=== PATIENT | male | born 1985 | race African-American/Black ===

== ENCOUNTER 2020-06-11 18:02 | Inpatient (IN) | payer OTHER ==
[~2020-06-11] VITALS: Ht 182.9 cm; Wt 109.4 kg
[2020-06-11] MEDS ORDERED: DiphenhydrAMINE HCL 50 MG/ML VIAL IM ONE (19:00)
[2020-06-11] MEDS ORDERED: LORazepam 2 MG/ML VIAL IM ONE (19:00)
[2020-06-11 19:44] LABS: BASOPHILS % (AUTO) 0.3 % (0.0-2.0); EOSINOPHILS % (AUTO) 1.3 % (1.0-6.0); HEMATOCRIT 46.5 % (41-53); HEMOGLOBIN 15.1 g/dL (13.5-17.5); LYMPHOCYTES # (AUTO) 1.8 K/uL (1.0-4.8); LYMPHOCYTES % (AUTO) 26.7 % (22.0-44.0); MEAN CORPUSCULAR HEMOGLOBIN 28.5 pg (26.0-34.0); MEAN CORPUSCULAR HGB CONC 32.5 G/dL (31.0-37.0); MEAN CORPUSCULAR VOLUME 88 fL (80-100); MONOCYTES # (AUTO) 0.5 K/uL (0.1-1.0); MONOCYTES % (AUTO) 7.2 % (2.0-9.0); NEUTROPHILS # (AUTO) 4.3 K/uL (1.8-7.7); NEUTROPHILS % (AUTO) 64.5 % (40.0-70.0); PLATELET COUNT (AUTO) 207 K/uL (150-450); RED CELL DISTRIBUTION WIDTH 15.1 % (11.5-14.5)
[2020-06-11 19:55] LABS: ANION GAP 8 mmol/L (8-16); CALCIUM, TOTAL 9.1 mg/dL (8.8-10.5); CARBON DIOXIDE 28 mmol/L (22-29); CHLORIDE 107 mmol/L (98-107); GLOMERULAR FILTR. RATE CALC > 60 mL/min (>60); GLUCOSE,RANDOM 107 mg/dL (70-110); POTASSIUM 4.3 mmol/L (3.5-5.1); SODIUM SERUM 143 mmol/L (136-145); UREA NITROGEN, BLOOD 12 mg/dL (7-18)
[2020-06-11 20:00] LABS: ALANINE AMINOTRANSFERASE 30 U/L (12-78); ALBUMIN 4.4 g/dL (3.4-5.0); ALKALINE PHOSPHATASE 73 U/L (46-116); ASPARTATE AMINOTRANSFERASE 21 U/L (15-37); BILIRUBIN,TOTAL 0.4 mg/dL (0.1-1.0); TOTAL PROTEIN, SERUM 8.6 g/dL (6.4-8.2)
[2020-06-11 21:25] VITALS: BP 126/86
[2020-06-11] MEDS ORDERED: CloNIDine HCL 0.1 MG TABLET PO PRN (23:00)
[2020-06-11] MEDS ORDERED: DOCUSATE SODIUM 100 MG CAPSULE PO PRN (23:00)
[2020-06-11] MEDS ORDERED: PETROLATUM,WHITE 28 GM JELLY TP PRN (23:00)
[2020-06-11] MEDS ORDERED: MAGNESIUM HYDROXIDE SUSPENSION 30 ML UDCUP PO PRN (23:00)
[2020-06-11] MEDS ORDERED: LOPERAMIDE HCL 2 MG CAPSULE PO PRN (23:00)
[2020-06-11] MEDS ORDERED: ACETAMINOPHEN 325 MG TABLET PO PRN (23:00)
[2020-06-11] MEDS ORDERED: GuaiFENesin/D-METHORPHAN [SUGAR-FREE] 200-20MG/10 ML SYRUP UDCUP PO PRN (23:00)
[2020-06-11] MEDS ORDERED: ONDANSETRON HCL 4 MG TABLET PO PRN (23:00)
[2020-06-11] MEDS ORDERED: NICOTINE 14 MG/24 HOUR PATCH TD PRN (23:00)
[2020-06-11] MEDS ORDERED: ALBUTEROL SULFATE HFA 90 MCG/PUFF 8 GM INHALER IH PRN (23:00)
[2020-06-12] VITALS (11 sets, daily range): BP systolic 117–150; BP diastolic 74–112
[2020-06-12 05:51] LABS: AMPHET/METH SCREEN,URINE NEGATIVE (NEGATIVE); BARBITURATE SCREEN, URINE NEGATIVE (NEGATIVE); BENZODIAZEPINES SCREEN,URINE NEGATIVE (NEGATIVE); CANNABINOID SCREEN,URINE NEGATIVE (NEGATIVE); COCAINE SCREEN,URINE NEGATIVE (NEGATIVE); METHADONE SCREEN, URINE NEGATIVE (NEGATIVE); OPIATE SCREEN,URINE NEGATIVE (NEGATIVE)
[2020-06-12 06:00] LABS: PHENCYCLIDINE SCREEN,URINE NEGATIVE (NEGATIVE)
[2020-06-12 15:56] LABS: SALICYLATE 1.1 mg/dL (2.8-20.0)
[2020-06-12 16:00] LABS: BILIRUBIN,DIRECT 0.1 mg/dL (0.00-0.20); BILIRUBIN,TOTAL 0.4 mg/dL (0.1-1.0); TOTAL PROTEIN, SERUM 8.1 g/dL (6.4-8.2)
[2020-06-12] MEDS: MAG HYDROX/AL HYDROX/SIMETH ES 30 ML SUSPENSION UDCUP PO PRN (23:43)
[2020-06-13] MEDS: ZOLPIDEM TARTRATE 5 MG TABLET PO PRN (01:00)
[2020-06-13 04:46] VITALS: BP 118/76
[2020-06-13 07:37] LABS: ALBUMIN 3.5 g/dL (3.4-5.0); BILIRUBIN,DIRECT 0.1 mg/dL (0.00-0.20); BILIRUBIN,TOTAL 0.3 mg/dL (0.1-1.0); TOTAL PROTEIN, SERUM 7.3 g/dL (6.4-8.2)
[2020-06-13 08:13] VITALS: BP 118/77
[2020-06-13] MEDS: MAG HYDROX/AL HYDROX/SIMETH ES 30 ML SUSPENSION UDCUP PO PRN ×2 (08:51→21:26)
[2020-06-13 11:53] VITALS: BP 148/93
[2020-06-13] MEDS ORDERED: HALOPERIDOL LACTATE 5 MG/ML VIAL IM PRN (13:45)
[2020-06-13] MEDS: RisperiDONE 3 MG TABLET PO SCH ×2 (14:24→21:00)
[2020-06-13] MEDS: LITHIUM CARBONATE 300 MG CAPSULE PO SCH ×2 (14:24→21:00)
[2020-06-13 17:07] VITALS: BP 126/87
[2020-06-13] MEDS: DiphenhydrAMINE HCL 25 MG CAPSULE PO PRN (17:38)
[2020-06-13] MEDS: TraMADol HCL 50 MG TABLET PO PRN (17:38)
[2020-06-13 20:04] VITALS: BP 110/70
[2020-06-14 00:06] VITALS: BP 132/73
[2020-06-14 05:55] VITALS: BP 110/69
[2020-06-14 07:06] VITALS: BP 125/74
[2020-06-14] MEDS: TraMADol HCL 50 MG TABLET PO PRN ×2 (08:20→18:14)
[2020-06-14] MEDS: DiphenhydrAMINE HCL 25 MG CAPSULE PO PRN ×2 (08:20→18:14)
[2020-06-14] MEDS: RisperiDONE 3 MG TABLET PO SCH ×2 (08:22→20:30)
[2020-06-14] MEDS: LITHIUM CARBONATE 300 MG CAPSULE PO SCH ×2 (08:22→20:30)
[2020-06-14 11:11] VITALS: BP 108/67
[2020-06-14 15:15] VITALS: BP 139/115
[2020-06-14] MEDS: PHENYLEPHRINE/SHK LV/MIN OIL/PET 57 GM OINTMENT TP PRN (18:15)
[2020-06-14 20:08] VITALS: BP 102/55
[2020-06-14] MEDS: MAG HYDROX/AL HYDROX/SIMETH ES 30 ML SUSPENSION UDCUP PO PRN (20:29)
[2020-06-15 00:08] VITALS: BP 110/62
[2020-06-15] MEDS: ZOLPIDEM TARTRATE 5 MG TABLET PO PRN ×2 (00:23→22:14)
[2020-06-15 04:28] VITALS: BP 118/81
[2020-06-15 07:33] VITALS: BP 119/80
[2020-06-15] MEDS: MAG HYDROX/AL HYDROX/SIMETH ES 30 ML SUSPENSION UDCUP PO PRN ×2 (07:59→20:14)
[2020-06-15] MEDS: DiphenhydrAMINE HCL 25 MG CAPSULE PO PRN ×2 (07:59→18:06)
[2020-06-15] MEDS: TraMADol HCL 50 MG TABLET PO PRN ×2 (07:59→18:07)
[2020-06-15] MEDS: RisperiDONE 3 MG TABLET PO SCH (08:00)
[2020-06-15] MEDS: LITHIUM CARBONATE 300 MG CAPSULE PO SCH (08:00)
[2020-06-15 10:50] VITALS: BP 137/72
[2020-06-15] MEDS: DIVALPROEX SODIUM 500 MG DR TABLET PO SCH ×2 (12:02→20:14)
[2020-06-15 15:22] VITALS: BP 127/54
[2020-06-16] MEDS: LORazepam 2 MG/ML VIAL IM PRN ×3 (01:15→19:57)
[2020-06-16 08:00] VITALS: BP 128/64
[2020-06-16] MEDS: DIVALPROEX SODIUM 500 MG DR TABLET PO SCH ×2 (08:33→19:56)
[2020-06-16] MEDS: TraMADol HCL 50 MG TABLET PO PRN ×2 (08:34→17:48)
[2020-06-16] MEDS: DiphenhydrAMINE HCL 25 MG CAPSULE PO PRN ×2 (08:34→17:48)
[2020-06-16] MEDS: MAG HYDROX/AL HYDROX/SIMETH ES 30 ML SUSPENSION UDCUP PO PRN ×2 (08:38→20:22)
[2020-06-16 15:08] VITALS: BP 135/84
[2020-06-16] MEDS: LURASIDONE HCL 80 MG TABLET PO SCH (19:56)
[2020-06-16 20:03] VITALS: BP 130/75
[2020-06-16] MEDS: ZOLPIDEM TARTRATE 5 MG TABLET PO PRN (20:53)
[2020-06-17 04:04] VITALS: BP 132/73
[2020-06-17 08:22] VITALS: BP 124/75
[2020-06-17] MEDS: DIVALPROEX SODIUM 500 MG DR TABLET PO SCH ×2 (09:34→20:06)
[2020-06-17] MEDS: TraMADol HCL 50 MG TABLET PO PRN (09:40)
[2020-06-17] MEDS: MAG HYDROX/AL HYDROX/SIMETH ES 30 ML SUSPENSION UDCUP PO PRN ×2 (09:41→20:07)
[2020-06-17] MEDS: DiphenhydrAMINE HCL 25 MG CAPSULE PO PRN ×2 (09:45→21:00)
[2020-06-17] MEDS: PHENYLEPHRINE/SHK LV/MIN OIL/PET 57 GM OINTMENT TP PRN (12:39)
[2020-06-17 15:03] VITALS: BP 120/77
[2020-06-17 19:19] VITALS: BP 119/76
[2020-06-17] MEDS: LURASIDONE HCL 80 MG TABLET PO SCH (20:06)
[2020-06-17] MEDS: ZOLPIDEM TARTRATE 5 MG TABLET PO PRN (20:55)
[2020-06-17] MEDS: LORazepam 2 MG/ML VIAL IM PRN (20:55)
[2020-06-18] MEDS: TraMADol HCL 50 MG TABLET PO PRN (03:40)
[2020-06-18 03:49] VITALS: BP 131/52
[2020-06-18 07:14] VITALS: BP 120/76
[2020-06-18] MEDS: DiphenhydrAMINE HCL 25 MG CAPSULE PO PRN ×2 (07:18→08:04)
[2020-06-18] MEDS: DIVALPROEX SODIUM 500 MG DR TABLET PO SCH ×2 (07:59→20:42)
[2020-06-18] MEDS: MAG HYDROX/AL HYDROX/SIMETH ES 30 ML SUSPENSION UDCUP PO PRN (08:04)
[2020-06-18] MEDS ORDERED: HALOPERIDOL LACTATE 5 MG/ML VIAL IM ONE (19:15)
[2020-06-18] MEDS ORDERED: DiphenhydrAMINE HCL 50 MG/ML VIAL IM ONE (19:15)
[2020-06-18] MEDS ORDERED: LORazepam 2 MG/ML VIAL IM ONE (19:15)
[2020-06-18] MEDS: LURASIDONE HCL 80 MG TABLET PO SCH (20:42)
[2020-06-18] MEDS: ZOLPIDEM TARTRATE 5 MG TABLET PO PRN (21:02)
[2020-06-19 07:28] VITALS: BP 142/85
[2020-06-19] MEDS: DIVALPROEX SODIUM 500 MG DR TABLET PO SCH ×2 (08:10→21:00)
[2020-06-19] MEDS: MAG HYDROX/AL HYDROX/SIMETH ES 30 ML SUSPENSION UDCUP PO PRN (08:10)
[2020-06-19] MEDS: TraMADol HCL 50 MG TABLET PO PRN ×2 (08:10→21:18)
[2020-06-19] MEDS: PHENYLEPHRINE/SHK LV/MIN OIL/PET 57 GM OINTMENT TP PRN (13:30)
[2020-06-19] MEDS: DiphenhydrAMINE HCL 25 MG CAPSULE PO PRN (15:21)
[2020-06-19 16:09] VITALS: BP 129/82
[2020-06-19 19:40] VITALS: BP 140/68
[2020-06-19] MEDS: LURASIDONE HCL 80 MG TABLET PO SCH (21:00)
[2020-06-19] MEDS: ZOLPIDEM TARTRATE 5 MG TABLET PO PRN (21:12)
[2020-06-19] MEDS: LORazepam 2 MG/ML VIAL IM PRN (21:12)
[2020-06-20 04:37] VITALS: BP 127/89
[2020-06-20 08:00] VITALS: BP 107/61
[2020-06-20] MEDS: DIVALPROEX SODIUM 500 MG DR TABLET PO SCH ×2 (08:50→20:54)
[2020-06-20] MEDS: DiphenhydrAMINE HCL 25 MG CAPSULE PO PRN ×2 (08:50→20:57)
[2020-06-20] MEDS: TraMADol HCL 50 MG TABLET PO PRN ×2 (08:51→16:54)
[2020-06-20] MEDS: PHENYLEPHRINE/SHK LV/MIN OIL/PET 57 GM OINTMENT TP PRN (12:54)
[2020-06-20 15:32] VITALS: BP 134/89
[2020-06-20] MEDS: LURASIDONE HCL 80 MG TABLET PO SCH (20:54)
[2020-06-20 21:40] VITALS: BP 153/94
[2020-06-20] MEDS: LORazepam 2 MG/ML VIAL IM PRN (22:02)
[2020-06-20] MEDS: ZOLPIDEM TARTRATE 5 MG TABLET PO PRN (22:02)
[2020-06-20] MEDS: MAG HYDROX/AL HYDROX/SIMETH ES 30 ML SUSPENSION UDCUP PO PRN (22:07)
[2020-06-21 03:13] VITALS: BP 146/99
[2020-06-21] MEDS ORDERED: DIVA-112 PO (08:18)
[2020-06-21] MEDS ORDERED: ALBU8HFA IH (08:19)
[2020-06-21] MEDS ORDERED: LURA80TA2 PO (08:19)
[2020-06-21] MEDS ORDERED: DOCU-275 PO (08:20)
[2020-06-21] MEDS: DIVALPROEX SODIUM 500 MG DR TABLET PO SCH (08:34)
== END 2020-06-21 10:10 | DRG 885 ==
LOC: EMS 18:03 → 6S 20:30 → 5S 06-12 11:08 → 6S 06-15 17:14
PROVIDERS: ADMIT Internal Medicine; ATTEND Internal Medicine
DX: F20.9 Schizophrenia, unspecified (principal); R45.851 Suicidal ideations; T39.1X2A Poisoning by 4-Aminophenol derivatives, intentional self-harm, initial encounter; F31.9 Bipolar disorder, unspecified; Z88.1 Allergy status to other antibiotic agents; Z88.0 Allergy status to penicillin; Z88.8 Allergy status to other drugs, medicaments and biological substances; Z91.19 Patient's noncompliance with other medical treatment and regimen; E66.9 Obesity, unspecified; Y92.89 Other specified places as the place of occurrence of the external cause
CPT/HCPCS: G0480; G0481; J1200; J1630; J2060; Q0162

== ENCOUNTER 2020-06-21 14:08 | Emergency (ER) | payer OTHER ==
[~2020-06-21 14:08] MED LIST: ALBU8HFA IH; DIVA-112 PO; DOCU-275 PO; LURA80TA2 PO
== END 2020-06-21 14:10 | disposition left against medical advice (07) ==
LOC: EMS 14:10
DX: S01.01XA Laceration without foreign body of scalp, initial encounter (principal); Z53.21 Procedure and treatment not carried out due to patient leaving prior to being seen by health care provider; X58.XXXA Exposure to other specified factors, initial encounter; Y93.89 Activity, other specified; Y92.89 Other specified places as the place of occurrence of the external cause; Y99.8 Other external cause status